=== PATIENT | male | born 1970 | race Caucasian/White ===

== ENCOUNTER → 2024-03-25 17:00 | Outpatient (REF) | payer OTHER, SELFPAY | LOC: RAD 17:00 | PROVIDERS: ATTENDING PHYSICIAN Internal Medicine Rheumatology; FAMILY PHYSICIAN Family Medicine | DX: M05.79 Rheumatoid arthritis with rheumatoid factor of multiple sites without organ or systems involvement (principal) | CPT/HCPCS: 73130 ==